=== PATIENT | male | born 2000 | race Caucasian/White ===

== ENCOUNTER → 2019-03-12 | Outpatient (CLI) | payer BC ==
[2019-03-12 09:40] LABS: Hematocrit 40.3 % (37.0-53.0); Hemoglobin 13.4 g/dL (13.5-17.5); Mean Corpuscular HGB 30.2 pg (26.0-34.0); Mean Corpuscular HGB Conc 33.3 g/dL (31.5-36.5); Mean Corpuscular Volume 91 fL (80-100); Mean Platelet Volume 10.1 fL (9.1-12.4); Platelet Count 143 K/mm3 (150-400); RDW Coefficient Variation 13.2 % (11.7-14.2); RDW Standard Deviation 44.5 fL (35.1-46.3); Red Blood Cell Count 4.44 M/mm3 (4.30-5.90); White Blood Cell Count 14.67 K/mm3 (4.00-11.30)
[2019-03-12 09:58] LABS: Alanine Aminotransfer (ALT/SGP 598 U/L (12-78); Albumin, Blood 3.8 g/dL (3.4-5.0); Alk Phos 169 U/L (58-237); Anion Gap 4 mmol/L (6-16); Aspartate Aminotrans (AST/SGOT 337 U/L (12-37); Bilirubin, Total 0.5 mg/dL (0.1-1.0); Blood Urea Nitrogen 17 mg/dL (8-21); Bun/Creatinine Ratio 22.1 (12.0-20.0); CO2, Blood 29 mmol/L (21-32); Calcium, Blood 8.5 mg/dL (8.5-10.1); Chloride, Blood 106 mmol/L (98-108); Creatinine, Blood 0.77 mg/dL (0.60-1.20); Globulin, Blood 3.7 g/dL (2.2-4.0); Glomerular Filtration Rate >60 (60-); Glucose, Blood 96 mg/dL (70-99); Potassium, Blood 4.1 mmol/L (3.5-5.5); Sodium, Blood 139 mmol/L (136-145); Total Protein, Blood 7.5 g/dL (6.4-8.2)
[2019-03-12 11:21] LABS: BASOPHILS PERCENT MAN 0 % (0-2); BLASTS PERCENT MAN 1 % (0-0); EOSINOPHILS ABSOLUTE MAN 0.14 K/mm3 (0.00-0.68); EOSINOPHILS PERCENT MAN 1 % (0-6); LYMPHOCYTES ABSOLUTE MAN 9.09 K/mm3 (0.84-5.20); LYMPHOCYTES PERCENT MAN 62 % (21-46); MONOCYTES ABSOLUTE MAN 3.08 K/mm3 (0.16-1.47); MONOCYTES PERCENT MAN 21 % (4-13); SEG NEUTROPHILS PERCENT MAN 15 % (41-73); TOTAL CELLS COUNTED 100
== END | disposition home or self-care (01) ==
LOC: LAB EV 09:10 → LAB 09:10 → LAB SHORT 09:10
PROVIDERS: Physician Assistant
DX: J02.9 Acute pharyngitis, unspecified (principal); R53.83 Other fatigue
CPT/HCPCS: 80053; 85025